=== PATIENT | male | born 1990 ===

== ENCOUNTER 2021-09-18 06:11 | Emergency (ER) | payer OTHER ==
[2021-09-18 06:34] VITALS: BP 121/70
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
== END 2021-09-18 08:52 | disposition home or self-care (01) ==
LOC: ED 06:11
DX: S90.511A Abrasion, right ankle, initial encounter (principal); M25.572 Pain in left ankle and joints of left foot; V87.7XXA Person injured in collision between other specified motor vehicles (traffic), initial encounter; Y93.89 Activity, other specified; Y92.488 Other paved roadways as the place of occurrence of the external cause; Y99.8 Other external cause status
CPT/HCPCS: 99283